=== PATIENT | female | born 1965 | race Native Hawaiian/Other Pacific Islander ===

== ENCOUNTER 2017-12-17 14:33 | Emergency (ER) | payer BC ==
[~2017-12-17] VITALS: Ht 162.6 cm; Wt 77.1 kg
[2017-12-17 15:17] LABS: POTASSIUM 3.9 mmol/L (3.6-5.2)
[2017-12-17 15:22] LABS: PLATELET COUNT 369 K/uL (152-353)
[2017-12-17 16:20] VITALS: BP 136/83; TEMP 97.9
== END 2017-12-17 16:20 | disposition home or self-care (01) ==
LOC: ED 14:33
DX: F13.20 Sedative, hypnotic or anxiolytic dependence, uncomplicated (principal)
CPT/HCPCS: 36415; 80053; 80307; 80320; 80329; 81000; 85027; 93005; 99285